=== PATIENT | male | born 1970 | race Two or more races ===

== ENCOUNTER 2017-11-30 01:26 | Emergency (ER) | payer OTHER ==
[~2017-11-30] VITALS: Ht 157.5 cm; Wt 67.6 kg
[2017-11-30 02:51] LABS: Urine Bacteria NONE SEEN /hpf (None Seen); Urine Blood 2+ /uL (Negative); Urine Specific Gravity 1.006 (1.001-1.035); Urine WBC 1 /hpf (0 - 3)
[2017-11-30 05:56] VITALS: BP 157/104
== END 2017-11-30 06:17 | disposition home or self-care (01) ==
LOC: ER 01:26
DX: K40.20 Bilateral inguinal hernia, without obstruction or gangrene, not specified as recurrent (principal); R30.0 Dysuria; R31.9 Hematuria, unspecified
CPT/HCPCS: 74176; 81001